=== PATIENT | male | born 1955 | race Two or more races ===

== ENCOUNTER 2018-12-12 14:04 | Emergency (ER) | payer SELFPAY ==
--- NOTE | 2018-12-12 14:20 | ED Physician Documentation ---
Lower Extremity Injury - HISTORIAN Historian: patient - HPI Stated Complaint: right knee pain Chief Complaint: Lower Extremity Injury Additional Information: Patient presents to ED after slipping and falling on the ice today while at work. 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 Onset: minutes (30) Where: work Severity: mild Context: fall Associated Symptoms:: swelling. denies: tingling, numbness distally, unable to bear weight Modifying Factors:: pain on movement - ROS CONST: denies: fever CVS/RESP: denies: shortness of breath GI/: denies: nausea, vomiting MS/SKIN/LYMPH: denies: neck pain, back pain NEURO: denies: headache - PAST HX Past History: none Allergies/Adverse Reactions: Allergies Allergy/AdvReac Type Severity Reaction Status Date / Time No Known Allergies Allergy Verified 12/12/18 14:25 Home Medications: Ambulatory Orders Medication Instructions Recorded Losartan Potassium [Cozaar] 50 mg PO DAILY 12/12/18 - SOCIAL HX Smoking History: non-smoker Alcohol Use: none Drug Use: none - FAMILY HX Family History: none - VITAL SIGNS Vital Signs: Vital Signs Temp Pulse Resp BP Pulse Ox 99 H 16 170/97 97 12/12/18 15:30 12/12/18 15:30 12/12/18 15:30 12/12/18 15:30 - REVIEWED ASSESSMENTS Nursing Assessment Reviewed: Yes Vitals Reviewed: Yes ED Results Lab/Radiology - Radiology Radiology Impressions: Report Submission Date: Dec 12, 2018 2:51:35 PM PLANT CONTROL AIDE Patient Study Name: Frances MONTES DE OCA Date: Dec 12, 2018 2:25:12 PM PLANT CONTROL AIDE Modality Type: DX Gender: M Description: KNEE 3 VIEWS : 59 Institution: [facility] Physician: SPENCER EARL Examination: Plain film right knee History: RT KNEE, RT KNEE PAIN AFTER FALL TODAY Findings: 3 views of the right knee demonstrates normal cortical margins. No fracture. No dislocation. No joint effusion. No soft tissue irregularity. Impression: No acute osseous abnormality Electronically signed on Dec 12, 2018 2:51:35 PM PLANT CONTROL AIDE by: Conrad Phelps - Orders Orders: ED Orders Category Date Time Status Knee Immobilizer 1T Care 12/12/18 14:58 Active KNEE 3 VIEWS [RAD] Stat Exams 12/12/18 Ordered Lower Extremities Injury Phy - Physical Exam General Appearance: no acute distress, alert Hips: bilateral hip: non-tender, normal inspection, no evidence of injury Legs: bilateral: normal inspection, normal range of motion Knees: right: soft tissue tenderness, swelling Ankle: bilateral: non-tender, normal range of motion, no evidence of injury Foot: bilateral foot: non-tender, normal inspection, no evidence of injury Ligaments: No: pain on anterior drawer, laxity on anterior drawer, pain on posterior drawer, laxity on posterior drawe Gait: limited by pain Neuro/Vascular/Tendon: no vascular compromise, motor nml Head/ENT: nml inspection Neck/Back: nml inspection Resp/CVS: chest non-tender, breath sounds nml Abdomen: non-tender. No: tenderness Discharge Clincal Impression: Right knee sprain Qualifiers: Encounter type: initial encounter Involved ligament of knee: unspecified ligament Qualified Code(s): S83.91XA - Sprain of unspecified site of right knee, initial encounter Referrals: Primary Doctor,No [Primary Care Provider] - 2 Days Additional Instructions: 1. Tramadol as needed for pain. Do not drive while taking this medication 2. Tylenol and/or Ibuprofen may be taken in addition to tramadol for better pain control. 3. Use knee brace and crutches while ambulating 4. Follow up with Workman's comp physician as soon as possible. 5. Return to ER for new or worsening symptoms Condition: Stable Disposition: 01 HOME, SELF-CARE Decision to Admit: NO Date of Decison to Admit: 12/12/18 Decision Time: 15:02
[2018-12-12 14:25] VITALS: BP 170/97
--- NOTE | 2018-12-13 04:24 | Diagnostic Imaging Report ---
SPENCER EARL [facility] [id number] [facility] [address] [id number] Report Submission Date: Dec 12, 2018 2:51:35 PM INSULATOR TECHNICIAN Patient Study Name: Frances MONTES DE OCA Date: Dec 12, 2018 2:25:12 PM INSULATOR TECHNICIAN Modality Type: DX Gender: M Description: KNEE 3 VIEWS : 59 Institution: [facility] Physician: SPENCER EARL Examination: Plain film right knee History: RT KNEE, RT KNEE PAIN AFTER FALL TODAY Findings: 3 views of the right knee demonstrates normal cortical margins. No fracture. No dislocation. No joint effusion. No soft tissue irregularity. Impression: No acute osseous abnormality Electronically signed on Dec 12, 2018 2:51:35 PM INSULATOR TECHNICIAN by: Conrad TANG
== END 2018-12-12 15:29 | disposition home or self-care (01) ==
LOC: ED 14:04
DX: S83.91XA Sprain of unspecified site of right knee, initial encounter (principal); W00.0XXA Fall on same level due to ice and snow, initial encounter; Y93.89 Activity, other specified; Y92.523 Highway rest stop as the place of occurrence of the external cause; Y99.0 Civilian activity done for income or pay
CPT/HCPCS: 29530; 73562; 99282; 99283